=== PATIENT | male | born 1985 | race Caucasian/White ===

== ENCOUNTER → 2021-03-29 08:09 | Outpatient (CLI) | payer OTHER, SELFPAY ==
--- NOTE | 2021-03-29 | DI.MRI.S_ITS ---
PROCEDURE: MR TMJ WO CON INDICATIONS: Jaw pain TECHNIQUE: Axial T1 spin echo, coronal and sagittal PD fast spin echo through the temporomandibular joints, in both the closed- and open-mouth positions. COMPARISON: None. FINDINGS: Image quality: Excellent. Right: Joint is normally aligned on closed and open-mouth positioning. Articular disk demonstrates normal location and morphology. No bony erosions or osteophytes. No joint effusion. Left: Joint is normally aligned on closed and open-mouth positioning. Articular disk demonstrates normal location and morphology. No bony erosions or osteophytes. No joint effusion. IMPRESSION: Normal MRI of the temporomandibular joints. Dictated by: Maria G Gusman MD, PhD on 03/29/2021 at 10:18 Approved by: Maria G Gusman MD, PhD on 03/29/2021 at 10:20
== END ==
PROVIDERS: PCP Nurse Practitioner; Referring Provider Dentist Oral and Maxillofacial Surgery; Visit Provider Dentist Oral and Maxillofacial Surgery
DX: R68.84 Jaw pain (principal)
CPT/HCPCS: 70336